=== PATIENT | female | born 1960 | race Caucasian/White ===

== ENCOUNTER 2016-10-04 12:07 | Emergency (ER) | payer MEDICARE, MEDICAID ==
[~2016-10-04] VITALS: Ht 162.6 cm; Wt 85.0 kg
[2016-10-04] MEDS ORDERED: SERT50TA12 PO (12:18)
[2016-10-04] MEDS ORDERED: SIMV5TAB6 PO (12:18)
[2016-10-04] MEDS ORDERED: VARE0.5T PO (12:18)
[2016-10-04 18:45] VITALS: BP 131/86
== END 2016-10-04 18:45 | disposition home or self-care (01) ==
LOC: EMS 12:10
DX: S82.841A Displaced bimalleolar fracture of right lower leg, initial encounter for closed fracture (principal); R03.0 Elevated blood-pressure reading, without diagnosis of hypertension; E78.00 Pure hypercholesterolemia, unspecified; W01.0XXA Fall on same level from slipping, tripping and stumbling without subsequent striking against object, initial encounter; Y92.009 Unspecified place in unspecified non-institutional (private) residence as the place of occurrence of the external cause; Y93.89 Activity, other specified; Y99.9 Unspecified external cause status
CPT/HCPCS: 29515; 99284